=== PATIENT | male | born 1945 | race Two or more races ===

== ENCOUNTER 2024-07-25 09:51 | Emergency (ER) | payer OTHER ==
[~2024-07-25] VITALS: Ht 170.2 cm; Wt 96.6 kg
[2024-07-25 10:32] VITALS: BP 124/74; O2SAT 98
[2024-07-25] MEDS ORDERED: AMLODIPINE BESYL5 MG PO (10:39)
[2024-07-25] MEDS ORDERED: SIMVASTATIN80 MG (10:40)
[2024-07-25] MEDS ORDERED: TAMS0.4C PO (10:40)
[2024-07-25] MEDS ORDERED: MITIGARE0.6 MG (10:40)
[2024-07-25] MEDS ORDERED: CRANBERRY250 M1 (10:41)
[2024-07-25] MEDS ORDERED: GLIMEPIRIDE2 M1 PO (10:41)
[2024-07-25] MEDS ORDERED: ASA81 MG PO (10:41)
[2024-07-25] MEDS ORDERED: COZAAR50 MG PO (10:42)
[2024-07-25] MEDS ORDERED: GLIPIZIDE XL2.5 MG (10:42)
[2024-07-25] MEDS ORDERED: LASIX20 MG (10:42)
[2024-07-25] MEDS ORDERED: SIMVASTATIN40 MG PO (10:43)
[2024-07-25] MEDS ORDERED: PROZAC20 MG PO (10:43)
[2024-07-25] MEDS ORDERED: TRAZODONE HCL150 MG (10:44)
[2024-07-25] MEDS ORDERED: SEROQUEL50 MG PO (10:44)
[2024-07-25] MEDS ORDERED: IRON325 MG (10:44)
[2024-07-25] MEDS ORDERED: FUROsemide 20 MG TABLET PO ONE (11:00)
[2024-07-25 11:29] LABS: HEMOGLOBIN 12.9 g/dL (13-16.00); MEAN CELL VOLUME 89.2 fL (80.0-100.00); MEAN CORPUSCULAR HEMOGLOBIN 30.2 pg (27.00-32.0); MEAN CORPUSCULAR HGB CONC 33.8 g/dl (32.0-36.0); PLATELET COUNT 256 K/uL (150-450); RED BLOOD COUNT 4.27 M/uL (4.00-6.00); RED CELL DISTRIBUTION WIDTH 14.6 % (11.5-14.5)
[2024-07-25 12:42] LABS: ALBUMIN 3.4 gm/dL (3.4-5.0); BILIRUBIN TOTAL 0.44 mg/dL (0.3-1.2); BILIRUBIN,CONJUGATED 0.15 mg/dL (0.0-0.2); BILIRUBIN,UNCONJUGATED 0.29 mg/dL (0.0-0.6); CALCIUM 9.1 mg/dL (8.5-10.1); CREATININE SERUM 2.88 mg/dL (0.70-1.30); GFR 21.21; GLOBULINA 4.6 G/DL (2.4-3.5); POTASSIUM 4.59 mEq/L (3.5-5.1)
[2024-07-25] MEDS ORDERED: ATARAX25 MG PO (13:04)
[2024-07-25] MEDS ORDERED: ZYRTEC10 M3 PO (13:04)
[2024-07-25] MEDS ORDERED: GABAPENTIN100 MG PO (13:04)
== END 2024-07-25 13:18 | disposition home or self-care (01) ==
LOC: ER 09:53
PROVIDERS: General Practice
DX: R60.0 Localized edema (principal); I10 Essential (primary) hypertension; E11.9 Type 2 diabetes mellitus without complications

== ENCOUNTER 2024-09-25 13:11 | Emergency (ER) | payer OTHER ==
[~2024-09-25] VITALS: Ht 172.7 cm; Wt 104.3 kg
[~2024-09-25 13:11] MED LIST: AMLODIPINE BESYL5 MG PO; ASA81 MG PO; ATARAX25 MG PO; COZAAR50 MG PO; CRANBERRY250 M1; GABAPENTIN100 MG PO; GLIMEPIRIDE2 M1 PO; GLIPIZIDE XL2.5 MG; IRON325 MG; LASIX20 MG; MITIGARE0.6 MG; PROZAC20 MG PO; SEROQUEL50 MG PO; SIMVASTATIN40 MG PO; SIMVASTATIN80 MG; TAMS0.4C PO; TRAZODONE HCL150 MG; ZYRTEC10 M3 PO
[2024-09-25 14:19] LABS: HEMOGLOBIN 13.2 g/dL (13-16.00); MEAN CELL VOLUME 90.1 fL (80.0-100.00); MEAN CORPUSCULAR HEMOGLOBIN 28.3 pg (27.00-32.0); MEAN CORPUSCULAR HGB CONC 31.5 g/dl (32.0-36.0); PLATELET COUNT 236 K/uL (150-450); RED BLOOD COUNT 4.66 M/uL (4.00-6.00); RED CELL DISTRIBUTION WIDTH 15.9 % (11.5-14.5)
[2024-09-25 14:43] LABS: ALBUMIN 3.4 gm/dL (3.4-5.0); BILIRUBIN TOTAL 0.47 mg/dL (0.3-1.2); BILIRUBIN,CONJUGATED 0.18 mg/dL (0.0-0.2); BILIRUBIN,UNCONJUGATED 0.29 mg/dL (0.0-0.6); CALCIUM 9.4 mg/dL (8.5-10.1); CREATININE SERUM 2.9 mg/dL (0.70-1.30); GFR 20.99; GLOBULINA 4.6 G/DL (2.4-3.5); POTASSIUM 4.34 mEq/L (3.5-5.1)
== END 2024-09-25 21:50 | disposition home or self-care (01) ==
LOC: ER 13:11
PROVIDERS: General Practice
DX: R18.8 Other ascites (principal); R53.1 Weakness; I10 Essential (primary) hypertension; E11.9 Type 2 diabetes mellitus without complications